=== PATIENT | female | born 1945 | race Caucasian/White ===

== ENCOUNTER 2025-05-19 10:35 | Emergency (ER) | payer MEDICAID ==
[~2025-05-19] VITALS: Ht 149.9 cm; Wt 54.0 kg
[2025-05-19 10:44] VITALS: TEMP 97.9
[2025-05-19 11:25] LABS: PLATELET COUNT (AUTO) 240 K/uL (150-450); RED BLOOD CELL COUNT(AUTO) 3.62 MIL/uL (4.00-5.20); RED CELL DISTRIBUTION WIDTH 14.3 % (11.5-14.5); WHITE BLOOD COUNT (AUTO) 6.2 K/uL (4.5-11.0)
[2025-05-19 11:40] LABS: CALCIUM, TOTAL 8.4 mg/dL (8.8-10.5); CREATININE 1.81 mg/dL (0.60-1.30); GLOMERULAR FILTR. RATE CALC 27.0 mL/min (>60); GLUCOSE,RANDOM 87.0 mg/dL (70-110); SODIUM SERUM 140.0 mmol/L (136-145); UREA NITROGEN, BLOOD 27.0 mg/dL (7-18)
[2025-05-19 13:20] VITALS: BP 165/70; PULSE 65; RESP 19; O2SAT 100
== END 2025-05-19 13:44 | disposition home or self-care (01) ==
LOC: EMS 10:35
DX: Z00.00 Encounter for general adult medical examination without abnormal findings (principal); I10 Essential (primary) hypertension; Z90.49 Acquired absence of other specified parts of digestive tract; Z88.5 Allergy status to narcotic agent
CPT/HCPCS: 80048; 83735; 85025; 93005; 99284